=== PATIENT | female | born 1970 | race Caucasian/White ===

== ENCOUNTER → 2020-11-01 12:57 | Outpatient (CLI) | payer SELFPAY ==
--- NOTE | 2020-11-01 13:08 | MRI_ITS ---
HISTORY: DIZZINESS EXAMINATION: MR Brain WO/W Contrast TECHNIQUE: Multiplanar and multisequence MR images of the brain were obtained with and without IV gadolinium. IV Contrast dosage and agent: 23cc dotarem COMPARISON: None FINDINGS: BRAIN PARENCHYMA: No MRI evidence of hemorrhage. No evidence of acute infarct. No intracranial mass or mass effect. No abnormal enhancement. There is preservation of the chaney/white matter interface. Normal sella turcica, pituitary gland, infundibular stalk, optic chiasm and hypothalamus. The internal auditory canals are patent. Posterior fossa structures are unremarkable. CSF SPACES: Appropriate for age. No hydrocephalus. Basal cisterns are patent. VASCULAR SYSTEM: Normal flow voids in the major intracranial circulation. CALVARIUM, SKULL BASE, PARANASAL SINUSES AND MASTOID AIR CELLS: Clear. No discrete lytic or blastic abnormalities. ORBITS: Both globes, extraocular muscles, optic nerves and retrobulbar fat appear unremarkable. MRI/Brain W/WO Contrast IMPRESSION: Unremarkable pre and post-contrast MRI brain. at 1655 Reported and signed by: Ramon Ochoa MD Electronically Signed: Ramon Ochoa MD at 16:54 EDT Tel , Service support ,
== END ==
PROVIDERS: Referring Provider Otolaryngology; Visit Provider Otolaryngology
DX: R42 Dizziness and giddiness (principal)
CPT/HCPCS: 70553; A9575